=== PATIENT | female | born 1965 | race Caucasian/White ===

== ENCOUNTER 2023-04-30 19:19 | Emergency (ER) | payer OTHER, SELFPAY ==
[2023-04-30 19:28] VITALS: BP 117/68; PULSE 59; RESP 16; TEMP 36.8; O2SAT 100; BMI 22.2
--- NOTE | 2023-04-30 19:33 | DI.RAD.S_ITS ---
PROCEDURE: XR CHEST 1V INDICATIONS: chest pain TECHNIQUE: One view of the chest was acquired. COMPARISON: None. FINDINGS: Surgical changes and devices: None. Lungs and pleura: Lungs are clear. No pleural effusions or pneumothorax. Mediastinum: Mediastinal contours appear normal. Heart size is normal. Bones and chest wall: No suspicious bony lesions. Overlying soft tissues appear unremarkable. IMPRESSION: No acute pulmonary process. Dictated by: Shantal Saldivar M.D. on 04/30/2023 at 20:11 Approved by: Shantal Saldivar M.D. on 04/30/2023 at 20:11
--- NOTE | 2023-04-30 19:55 | ED_ITS ---
HPI - Chest Pain General Chief Complaint: Chest Pain Stated Complaint: Thyroid surgery t-3, Chest tightness Time Seen by Provider: 04/30/23 19:21 Source: patient Mode of arrival: Ambulatory History of Present Illness HPI narrative: 57-year-old female nonsmoker presents for evaluation of chest tightness persistently for the past 3-4 days. She denies obvious provocation or palliation. She denies associated symptoms such as dizziness, weakness or lightheadedness. She has had no fever or chills. She denies runny nose or sore throat. The pain is described as a pressure and essentially located without radiation. She states that she recently had a thyroid cyst drained and the symptoms start in the aftermath. She is had this procedure done multiple times but this 1 was a bit more complex per the patient's report and required more ?pokes? than she typically needed. She denies any abdominal pain. She denies extremity pain, swelling or redness. Related Data Allergies Allergy/AdvReac Type Severity Reaction Status Date / Time Sulfa (Sulfonamide AdvReac Hives Verified 04/30/23 19:26 Antibiotics) Review of Systems Review of Systems Narrative: GENERAL: Denies chills, fatigue, malaise, fever, sweats. HEENT: Denies sinus pain, ear pain, sore throat, difficulty swallowing, dizziness. RESPIRATORY: Denies dyspnea, cough, wheezing, hemoptysis, sputum. CARDIOVASCULAR: See HPI GASTROINTESTINAL: Denies nausea, vomiting, abdominal pain, diarrhea, constipation, melena. : Denies dysuria, frequency, incontinence, hematuria, urinary retention. MUSCULOSKELETAL: denies weakness, joint pain, or bony pain SKIN: Denies rash, skin lesions, or other NEUROLOGIC: Denies weakness, headache, numbness, change in speech, confusion, seizures, incoordination. PSYCHIATRIC: No concerning psychosocial issues. 12 point review of systems is negative except for those stated above Patient History Social History Smoking Status: Never smoker Smoking Status: Never smoker alcohol intake frequency: holidays/special occasions only Substance Use Type: does not use Exam Narrative Exam Narrative: GENERAL: [57] year old patient appears stated age. Well-developed patient, in mild distress. HEAD: Atraumatic. Normocephalic. EYES: Pupils equal round and reactive. Extraocular motions intact. No scleral icterus. No injection or drainage. ENT: Nose without bleeding, purulent drainage. Throat without erythema, tonsillar hypertrophy or exudate. Airway patent. NECK: Trachea midline. Non tender CARDIOVASCULAR: Regular rate and rhythm without murmurs, gallops, or rubs. RESPIRATORY: Clear to auscultation. Breath sounds equal bilaterally. No wheezes, rales, or rhonchi. GASTROINTESTINAL: Abdomen soft, non-tender, nondistended. EXTREMITIES: No edema or joint tenderness. BACK: Nontender without deformity or crepitance. No flank tenderness. NEURO: AOx3. SKIN: No rash or erythema of visible areas Initial Vital Signs Initial Vital Signs: Vital Signs Temperature 98.2 F 04/30/23 19:28 Pulse Rate 59 L 04/30/23 19:28 Respiratory Rate 16 04/30/23 19:28 Blood Pressure 117/68 04/30/23 19:28 Pulse Oximetry 100 04/30/23 19:28 Oxygen Delivery Method Room Air 04/30/23 19:28 Scores HEART Score Heart Score history: Slightly Suspicious Heart Score EKG: Normal Heart Score Age: 45-64 years old Heart Score risk factors: No known risk factors Heart Score troponin: < or = to normal limit Heart Score Total: 1 Course Orders Ordered: ED Orders 04/30/23 19:33 XR chest 1V Stat EKG-12 Lead Stat 04/30/23 20:00 Complete Blood Count AUTO DIFF Stat Comprehensive Metabolic Panel Stat Lipase Stat Magnesium Stat PTT Partial Thromboplastin Ronni Stat Prothrombin Time INR Stat Troponin & CK Cardiac Panel Stat 04/30/23 20:04 CT angio chest PE protocol Stat Discontinued Medications Aspirin (Aspirin 81 Mg Chew Tab) 324 mg PO NOW ONE Stop: 04/30/23 19:34 Last Admin: 04/30/23 20:00 Dose: 324 mg Documented By: RUDY Ketorolac Tromethamine (Ketorolac 30 Mg/Ml Vial) 15 mg IV NOW ONE Stop: 04/30/23 21:23 Last Admin: 04/30/23 21:39 Dose: 15 mg Documented By: RUDY Vital Signs Vital signs: Vital Signs - 8 hr 04/30/23 19:28 04/30/23 20:53 04/30/23 21:30 Temperature 98.2 F Pulse Rate 59 L 58 L 59 L Respiratory Rate 16 12 16 Blood Pressure 117/68 125/70 110/65 Pulse Oximetry 100 99 99 Oxygen Delivery Method Room Air Room Air MDM - Chest Pain Lab Data 04/30/23 20:00 04/30/23 20:00 Labs: Lab Results 04/30/23 04/30/23 04/30/23 Range/Units 20:00 20:00 20:00 WBC 4.9 (4.5-11.0) X10^3/uL RBC 3.99 L (4.0-5.2) X10^6/uL Hgb 12.8 (12.0-16.0) g/dL Hct 36.6 (36-46) % MCV 91.7 (80-100) fL MCH 32.0 (26-34) PG MCHC 34.9 (30-36) % RDW 13.7 (11.6-14.8) % Plt Count 178 (150-400) X10^3/uL Neut % (Auto) 53.8 (50-75) % Lymph % (Auto) 34.0 (25-40) % Kerr % (Auto) 7.1 (3-14) % Eos % (Auto) 4.3 H (2-4) % Baso % (Auto) 0.8 (0-2) % Neut # (Auto) 2700 (2040-5315) /uL Lymph # (Auto) 1700 (2651-5105) /uL Kerr # (Auto) 400 (0-900) /uL Eos # (Auto) 200 (0-450) /uL Baso # (Auto) 0 (0-100) /uL PT 11.8 (10.1-12.7) SECONDS INR 1.0 (0.9-1.3) APTT 33 (26-36) SECONDS Sodium 135 L (137-145) mmol/L Potassium 4.4 (3.4-5.1) mmol/L Chloride 104 (98-107) mmol/L Carbon Dioxide 27 (22-32) mmol/L BUN 16 (7-17) mg/dL Creatinine 0.69 (0.52-1.04) mg/dL Estimated GFR > 60 (>60) mL/min BUN/Creatinine Ratio 23.2 H (6-22) Glucose 89 (70-100) mg/dL Calcium 9.0 (8.4-10.2) mg/dL Magnesium 1.9 (1.6-2.3) mg/dL Total Bilirubin 0.7 (0.2-1.3) mg/dL AST 30 (14-36) IU/L ALT 32 (<35) IU/L Alkaline Phosphatase 46 (38-126) U/L Total Creatine Kinase 50 (30-135) U/L Troponin I < 0.012 (0.01-0.034) ng/mL Total Protein 7.2 (6.3-8.2) g/dL Albumin 4.2 (3.5-5.0) g/dL Globulin 3.0 (1.7-4.1) g/dL Albumin/Globulin Ratio 1.4 (1.0-2.8) Lipase 70 (23-300) U/L MDM Narrative Medical decision making narrative: [57] year old patient presents with chest pressure persistently since Wednesday, recent thyroid surgery Multiple etiologies for patient's symptoms considered including, but not limited to: [Pulmonary embolism versus perforation versus hematoma versus cardiac ischemia versus other] Prior Charts reviewed in our EMR Primary Historian: patient Labs reviewed and interpreted by myself: No leukocytosis or left shift. Electrolytes, kidney function, troponin within normal limits Imaging reviewed: CTA without evidence of pulmonary embolism, perforation, infectious process, bleeding or evidence of postsurgical sequela Patient's symptoms improved over duration of stay with above-stated therapies. Findings and discharge diagnosis discussed with patient/family followed by verbalization of understanding Return precautions discussed with patient/family whom verbalize understanding of diagnosis and plan Discharge Plan Departure Patient Disposition: Home Clinical Impression: Atypical chest pain Instructions: DI for Atypical Chest Pain Activity Restrictions/Additional Instructions: *You have been diagnosed with [atypical chest pain. As we discussed there is no evidence of heart attack, blood clot, perforation, bleeding, infectious process or other significant abnormal finding that requires a specific or immediate intervention. *What to do: *Please continue to take your regular medications as directed. *Please follow up with your primary care provider in 2-3 days, call for an appointment. Let them know you were seen in the Emergency Department and that we ask that you be seen in follow up. We will electronically transmit a record of today's note if your PCP is in our system *If you do not have a primary care provider please contact the [facility] Resource line at [phone]. They will ask some questions about your medical history and help get you set up with a doctor in the community. *Return to Emergency Department if you should have any new, worsening or concerning symptoms, such as [fever greater than 101 F, shaking chills, worsening pain, persistent vomiting or other bothersome symptoms] Referrals: Bianca Hsieh PA-C [Primary Care Provider] - Stand Alone Forms: Patient Portal/API
[2023-04-30] MEDS: ASPIRIN 81 MG CHEW TAB 324 MG PO (20:00)
--- NOTE | 2023-04-30 20:04 | DI.CT.S_ITS ---
PROCEDURE: CT ANGIO CHEST PE PROTOCOL INDICATIONS: chest pain, SOB, recent thyroid procedure TECHNIQUE: After the administration of intravenous contrast, 2 mm thick sections acquired from the pulmonary apices to the posterior costophrenic angles. 3-dimensional maximum intensity projection (MIP) coronal and sagittal reformats were then acquired through the thorax. For radiation dose reduction, the following was used: automated exposure control, adjustment of mA and/or kV according to patient size. COMPARISON: [facility], RG, US THYROID, 07/20/2019, 11:48. [facility], CR, XR CHEST 1V, 04/30/2023, 19:53. FINDINGS: Image quality: Excellent. Pulmonary arteries: Pulmonary arteries are normal in size, and demonstrate no intraluminal filling defects to suggest central pulmonary embolism. Lungs and pleura: Lungs are clear. No pleural effusions or pneumothorax. Central and peripheral airways are patent. Mediastinum: Heart size is normal, without pericardial effusion. No mediastinal or hilar adenopathy. Thoracic aorta is normal in caliber and enhancement. Esophagus is normal in caliber, without hiatal hernia. Bones and chest wall: No suspicious bony lesions. Ribs and thoracic spine appear intact throughout. Thyroid gland demonstrates low-attenuation right lobe focus, unchanged. No axillary or supraclavicular adenopathy. Abdomen: Visualized upper abdominal solid organs appear normal in the early arterial phase of enhancement. IMPRESSION: No pulmonary embolism. Lungs are clear. Dictated by: Shantal Saldivar M.D. on 04/30/2023 at 21:03 Approved by: Shantal Saldivar M.D. on 04/30/2023 at 21:05
[2023-04-30 20:12] LABS: Add Manual Diff / Slide Review NO; Basophils Absolute Auto 0 /uL (0-100); Basophils Percent Auto 0.8 % (0-2); Eosinophils Absolute Auto 200 /uL (0-450); Eosinophils Percent Auto 4.3 % (2-4); Hematocrit 36.6 % (36-46); Hemoglobin 12.8 g/dL (12.0-16.0); Lymphocytes Absolute Auto 1700 /uL (1100-4500); Mean Corpuscular HGB Conc 34.9 % (30-36); Mean Corpuscular Volume 91.7 fL (80-100); Monocytes Absolute Auto 400 /uL (0-900); Monocytes Percent Auto 7.1 % (3-14); Neutrophils Absolute Auto 2700 /uL (1500-7000); Neutrophils Percent Auto 53.8 % (50-75); Platelet Count 178 X10^3/uL (150-400); Red Blood Cell Count 3.99 X10^6/uL (4.0-5.2); Red Cell Distribution Width 13.7 % (11.6-14.8); White Blood Cell Count 4.9 X10^3/uL (4.5-11.0)
[2023-04-30 20:19] LABS: Prothrombin Time 11.8 SECONDS (10.1-12.7)
[2023-04-30 20:21] LABS: PTT Partial Thromboplastin Tim 33 SECONDS (26-36)
[2023-04-30 20:22] LABS: Alanine Aminotransferase 32 IU/L (<35); Albumin 4.2 g/dL (3.5-5.0); Albumin Globulin Ratio 1.4 (1.0-2.8); Alkaline Phosphatase 46 U/L (38-126); Aspartate Aminotransferase 30 IU/L (14-36); BUN Creatinine Ratio 23.2 (6-22); Bilirubin Total 0.7 mg/dL (0.2-1.3); Blood Urea Nitrogen 16 mg/dL (7-17); Carbon Dioxide 27 mmol/L (22-32); Chloride 104 mmol/L (98-107); Creatine Kinase 50 U/L (30-135); Estimated Glomerular Filt Rate > 60 mL/min (>60); Glucose 89 mg/dL (70-100); HEMOLYSIS < 15 (0-50); Lipase 70 U/L (23-300); Magnesium 1.9 mg/dL (1.6-2.3); Potassium 4.4 mmol/L (3.4-5.1); Sodium 135 mmol/L (137-145); Total Protein 7.2 g/dL (6.3-8.2)
[2023-04-30 20:34] LABS: Troponin I < 0.012 ng/mL (0.01-0.034)
[2023-04-30 20:53] VITALS: BP 125/70; PULSE 58; RESP 12; O2SAT 99
[2023-04-30 21:30] VITALS: BP 110/65; PULSE 59; RESP 16; O2SAT 99
[2023-04-30] MEDS: KETOROLAC 30 MG/ML VIAL 15 MG IV (21:39)
== END 2023-04-30 22:10 | disposition home or self-care (01) ==
PROVIDERS: Emergency Provider Emergency Medicine; Family Provider Physician Assistant Medical; PCP Physician Assistant Medical
DX: R07.89 Other chest pain (principal)
CPT/HCPCS: 36415; 71045; 71275; 80053; 82550; 83690; 83735; 84484; 85025; 85610; 85730; 93005; 93010; 96374; 99284; J1885; Q9967

== ENCOUNTER 2023-06-19 07:52 | Emergency (ER) | payer OTHER, SELFPAY ==
[2023-06-19 07:56] VITALS: BP 109/62; PULSE 74; RESP 18; TEMP 36.6; O2SAT 100; BMI 20.9
[2023-06-19] MEDS: FLUORESCEIN 1 MG STRIP EYE-BOTH (08:06)
[2023-06-19] MEDS: PROPARACAINE 0.5% OPHTH SOL 1 DROPS EYE-BOTH (08:06)
--- NOTE | 2023-06-19 08:24 | ED.SKABFB ---
HPI - Skin/Abscess/Foreign Bdy General Chief complaint: Skin/Abscess/Foreign Body Stated complaint: L/ scratch to face and eye Time Seen by Provider: 06/19/23 08:01 Source: patient Mode of arrival: Ambulatory Limitations: no limitations History of Present Illness HPI narrative: Patient is a healthy 57-year-old female who presents today with left eye laceration. She was attacked by her cat this morning. Something scared the cat she got scratched in the eye. She does not wear contacts or glasses. She is a lower lip laceration she reports that she has a cyst in her eye. She put erythromycin ointment on it already. No visual changes. Related Data Previous Rx's Medication Instructions Recorded bacitracin zinc 500 unit/gram 1 applic topical TID #14 grams 06/19/23 topical ointment erythromycin 5 mg/gram (0.5 %) eye 0.5 inch ophthalmic (eye) TID #3.5 06/19/23 ointment grams Allergies Allergy/AdvReac Type Severity Reaction Status Date / Time Sulfa (Sulfonamide AdvReac Hives Verified 04/30/23 19:26 Antibiotics) Review of Systems Review of Systems ROS Unobtainable: All systems reviewed & are unremarkable except as noted in HPI and below Patient History Social History Smoking Status: Never smoker Smoking Status: Never smoker alcohol intake frequency: holidays/special occasions only Substance Use Type: does not use Exam Initial Vital Signs Initial Vital Signs: Vital Signs Temperature 97.9 F 06/19/23 07:56 Pulse Rate 74 06/19/23 07:56 Respiratory Rate 18 06/19/23 07:56 Blood Pressure 109/62 06/19/23 07:56 Pulse Oximetry 100 06/19/23 07:56 Oxygen Delivery Method Room Air 06/19/23 07:56 GENERAL: Well-appearing, well-nourished and in no acute distress. EYE: Extraocular muscles intact. Left eye lacrimal duct in tact there is no full-thickness laceration 0.25 cm horizontal superficial laceration of the lower lid. No adipose exposed. Lower lid cyst is noted. Pressure right eye 18mmHg Pressure left eye 17mmHg CARDIOVASCULAR: peripheral pulses in tact, cap refill <2 sec RESPIRATORY: No respiratory distress, speaks in full sentences without difficulty EXTREMITIES: Normal range of motion, no clubbing or edema. Neurovascularly intact NEUROLOGICAL: Cranial nerves II through XII grossly intact. Normal gait and speech. SKIN: Superficial scratches along nose and cheek Course Orders Ordered: Discontinued Medications Fluorescein Sodium (Fluorescein 1 Mg Strip) 1 mg EYE-BOTH NOW ONE Stop: 06/19/23 08:03 Last Admin: 06/19/23 08:06 Dose: 1 mg Documented By: RB Proparacaine HCl (Proparacaine 0.5% Ophth Deisy) 1 drops EYE-BOTH NOW ONE Stop: 06/19/23 08:03 Last Admin: 06/19/23 08:06 Dose: 1 drop Documented By: RB Vital Signs Vital signs: Vital Signs - 8 hr 06/19/23 07:56 Temperature 97.9 F Pulse Rate 74 Respiratory Rate 18 Blood Pressure 109/62 Pulse Oximetry 100 Oxygen Delivery Method Room Air MDM - Skin/Abscess/Foreign Bdy MDM Narrative Medical decision making narrative: 57-year-old female with a small superficial laceration on the lower lid. Eye exam is overall reassuring no actual lobe laceration or lens laceration no lacrimal duct laceration. Discussion with Ophthalmology [facility] , recommends transferring for evaluation and probable suture. Patient called and spoke to her own on-call sofa inspector whom I have not have spoke to as well. Picture was sent to him he disagrees with need for suture. He reports that he will see patient in 2 days on Wednesday. Patient does not want to drive down to [place] for evaluation. Reports that this should heal on its own. Discharge Plan Departure Patient Disposition: Home Clinical Impression: Laceration of eyelid without involvement of lid margin Instructions: DI for Laceration Repair Activity Restrictions/Additional Instructions: Recommend going directly to [facility] for suture and repair. Check into their emergency department and you will be seen and evaluated. Arrangements with local ophthalmology have been made, follow-up with them on Wednesday. This needs to be sutured and repaired today. Continue erythromycin ointment Return to emergency department if you should have any redness swelling fever or any new or worsening symptoms Prescriptions: New erythromycin 5 mg/gram (0.5 %) ointment 0.5 inch ophthalmic (eye) TID Qty: 3.5 0RF bacitracin zinc 500 unit/gram ointment 1 applic topical TID Qty: 14 0RF Referrals: Bianca Hsieh PA-C [Primary Care Provider] - Stand Alone Forms: Patient Portal/API
== END 2023-06-19 11:50 | disposition home or self-care (01) ==
PROVIDERS: Emergency Provider Emergency Medicine; Family Provider Physician Assistant Medical; PCP Physician Assistant Medical
DX: S01.112A Laceration without foreign body of left eyelid and periocular area, initial encounter (principal); W55.03XA Scratched by cat, initial encounter
CPT/HCPCS: 99282; 99283

== ENCOUNTER → 2025-08-10 07:59 | Outpatient (CLI) | payer OTHER, SELFPAY ==
--- NOTE | 2025-08-10 08:01 | DI.US.S_ITS ---
PROCEDURE: US PELVIC COMPLETE INDICATIONS: Postmenopausal bleeding TECHNIQUE: Real-time scanning was performed of the pelvic organs, with image documentation. Additional endovaginal scanning was necessary due to incomplete visualization of the adnexal and endometrial structures by transabdominal scanning. COMPARISON: None. FINDINGS: Uterus: Uterus is anteverted and normal in size at 7.5 x 5.4 x 4.2 cm. The myometrium is homogeneous. The endometrium measures 5.6 mm combined thickness. There is a intramural fibroid in the midportion anteriorly measuring 1.3 cm. Ovaries: The right ovary measures 2.5 x 1.5 x 1.3 cm, with unremarkable appearance. The left ovary was not definitely seen. No adnexal mass. Other: No pathologic free abdominal or pelvic fluid. IMPRESSION: 1. Endometrium measures 5.6 mm. Small uterine fibroid. 2. Nonvisualization of the left ovary, no adnexal mass seen. We strive to produce accurate, complete, and clear reports of imaging services. To assist us in improving patient care, this report was composed using standard report templates and voice recognition software. Therefore, it may contain abnormal punctuation, insertions and/or omissions. Occasional wrong-word or sound-alike substitutions may occur. Though we review the report and make efforts to correct it, we do recommend that the report be read carefully in proper context to recognize any text inaccuracies. Dictated by: Justice Sampson M.D. on 08/12/2025 at 14:06 Approved by: Justice Sampson M.D. on 08/12/2025 at 14:08
== END ==
LOC: US 08:00
PROVIDERS: Family Provider Physician Assistant Medical; PCP Physician Assistant Medical; Referring Provider Physician Assistant Medical; Visit Provider Obstetrics & Gynecology
DX: D25.9 Leiomyoma of uterus, unspecified (principal); N95.0 Postmenopausal bleeding; N89.8 Other specified noninflammatory disorders of vagina; N95.1 Menopausal and female climacteric states; Z79.890 Hormone replacement therapy
CPT/HCPCS: 76830; 76856

== ENCOUNTER → 2025-08-17 08:01 | Outpatient (CLI) | payer OTHER, SELFPAY ==
--- NOTE | 2025-08-17 08:02 | DI.MRI.S_ITS ---
PROCEDURE: MR PELVIS WO/W CON INDICATIONS: PMB, endometrial mass on US TECHNIQUE: Coronal HASTE, sagittal breath-hold T2 FSE; axial T1 FSE with and without fat saturation through the pelvis. Optional long- and short-axis uterine nonbreath-hold T2 FSE through the uterus. Sagittal or axial dynamic VIBE during administration of contrast. Post-contrast axial or coronal VIBE/2-D FLASH with fat saturation from the iliac crests to the symphysis. Optional diffusion weighted imaging and ADC may be performed. COMPARISON: [facility], US, US PELVIC COMPLETE, 08/10/2025, 8:25. FINDINGS: Image quality: Diagnostic Lower abdomen: No bowel obstruction or lower abdomen. No drainable ascites. Bladder: Unremarkable Reproductive organs: defect. Cervix is unremarkable. The endometrium measures 6 millimeters in thickness. No discrete lesion is identified. No significant adnexal lesion. 1.2 centimeter anterior intramural fibroid. Rectum: Unremarkable. Distal colonic diverticula. Vessels and lymph nodes: No aneurysmal artery identified. There are no enlarged lymph nodes by size criteria Pelvic wall: Unremarkable Bones: No aggressive appearing osseous abnormality. IMPRESSION: Mildly thickened endometrium at 6 millimeters. Consider sampling in the setting of postmenopausal bleeding. There is no discrete enhancing mass identified on MRI. 1.2 centimeter anterior intramural fibroid. No significant adnexal lesions. Dictated by: Jim Ewing M.D. on 08/17/2025 at 10:02 Approved by: Jim Ewing M.D. on 08/17/2025 at 10:09
== END ==
PROVIDERS: Family Provider Physician Assistant Medical; PCP Physician Assistant Medical; Referring Provider Physician Assistant Medical; Visit Provider Obstetrics & Gynecology
DX: N95.0 Postmenopausal bleeding (principal); N94.89 Other specified conditions associated with female genital organs and menstrual cycle; R93.89 Abnormal findings on diagnostic imaging of other specified body structures; D25.1 Intramural leiomyoma of uterus
CPT/HCPCS: 72197; A9579

== ENCOUNTER 2025-10-10 08:00 | Emergency (ER) | payer OTHER, SELFPAY ==
--- NOTE | 2025-10-10 08:07 | DI.RAD.S_ITS ---
PROCEDURE: XR CHEST 1V INDICATIONS: Chest Pain TECHNIQUE: One view of the chest was acquired. COMPARISON: [facility], CR, XR CHEST 1V, 04/30/2023, 19:53. FINDINGS: Surgical changes and devices: None. Lungs and pleura: Lungs are clear. No pleural effusions or pneumothorax. Mediastinum: Mediastinal contours appear normal. Heart size is normal. Bones and chest wall: No suspicious bony lesions. Overlying soft tissues appear unremarkable. IMPRESSION: No acute cardiopulmonary abnormality is seen. Dictated by: Tha Thomas M.D. on 10/10/2025 at 9:25 Approved by: Tha Thomas M.D. on 10/10/2025 at 9:25
--- NOTE | 2025-10-10 08:07 | EKG_ITS ---
[address] [address] Test Date: 2025-10-10 Pat Name: Elizabeth Longoria Department: Room: Gender: Female Creative Assistant: GEOVANNY : 1965 Requested By: Order Number: [id number] Reading MD: Michelet Gardiner Measurements Intervals [place] Rate: 60 P: 75 NH: 152 QRS: 82 QRSD: 82 T: 50 QT: 406 QTc: 406 Interpretive Statements Normal sinus rhythm Electronically Signed On 10-10-2025 14:13:45 PST by Michelet Gardiner
--- NOTE | 2025-10-10 08:10 | ED_ITS ---
HPI - Chest Pain General Chief Complaint: Chest Pain Stated Complaint: Chest pressure , Seen at [facility] 1 day Time Seen by Provider: 10/10/25 08:10 History of Present Illness HPI narrative: 60-year-old woman on hormone replacement therapy presents with 2 days of midsternal chest pain, occasional palpitations. She did recently fly back from [place]. She was seen at [facility] yesterday for similar complaints with complete workup done showing normal x-ray, EKG was unremarkable, troponins and D-dimer were negative and she was discharged home with a diagnosis of atypical chest pain. She did try some ibuprofen did not find it effective and was told to return to the ER if symptoms worsening. Today they were worsening she describes the pain as actual pressure and tightness rather than simply twinges and she previously. She is not having cough, she is not short of breath, there was no exertional component any of this none of this is associated with diaphoresis or dyspnea Related Data Home Medications ?Medication ?Instructions ?Recorded ?Confirmed eszopiclone 1 mg tablet (Lunesta) 1 mg PO BEDTIME 04/0110/03/25 semaglutide 0.25 mg/0.05 mL mg SUBCUT .1xw 04/11/25 subcutaneous syringe valacyclovir 500 mg tablet 500 mg PO TID PRN 04/11/25 10/03/25 (Valtrex) cyclosporine 0.05 % eye drops in a drp EYE-BOTH Dry Ey e 06/06/25 10/03/25 dropperette (Restasis) fluorouracil 5 % topical cream applic topical Skin Can cers 06/06/25 10/03/25 (Efudex) Previous Rx's ?Medication ?Instructions ?Recorded estradiol 10 mcg vaginal tablet 10 mcg vaginal 3XW #12 tabs 04/11/25 (Vagifem) progesterone micronized 100 mg 100 mg PO .qhs #30 caps 04/11/25 capsule CMP Testosterone 2mg DHEA 25mg See Rx Instructions .Ro rose marie 08/13/25 drops .COMPLEX #30 grams estradiol 0.0375 mg/24 hr 1 patch transdermal 2XW #8 e a 08/15/25 semiweekly transdermal patch (Vivelle-Dot) sodium,potassium,mag sulfates 17.5 See Rx Instructions PO .COMPLEX 09/21/25 gram-3.13 gram-1.6 gram oral soln #354 mL (Suprep Bowel Prep Kit) Allergies Allergy/AdvReac Type Severity Reaction Status Date / Time Sulfa (Sulfonamide AdvReac Hives Verified 10/03/25 08:56 Antibiotics) adhessive Allergy Uncoded 10/03/25 08:56 vespide AdvReac Severe Blister Uncoded 10/03/25 08:56 Review of Systems Review of Systems Narrative: Pertinent positive and negative findings as per HPI Patient History alcohol intake frequency: holidays/special occasions only Exam Initial Vital Signs Initial Vital Signs: Vital Signs Pulse Rate 69 10/10/25 10:56 Blood Pressure 114/69 10/10/25 10:56 Pulse Oximetry 100 10/10/25 10:56 Oxygen Delivery Method Room Air 10/10/25 10:56 General: Healthy appearing, in no acute distress. Able to give a complete and coherent history. Well-nourished well-developed HEENT: Moist mucous membranes, normal sclera with reactive pupils, Respiratory: Lungs are clear to auscultation, no wheezing no rales no rhonchi. Full and symmetrical air movement. Chest: Reproducible chest pain with palpation along the right-sided lower sternal border. No bruising or contusion to that area Cardiac: Regular rate and rhythm no murmurs no bruits Abdomen: Soft, nontender, no rebound or guarding, no flank pain Skin: Warm and dry, no rashes Neurologic: Grossly neurologically intact with no obvious asymmetries or abnormalities Extremities: No trauma, well perfused Psych: Cooperative, appropriate insight and affect Course Orders Ordered: ED Orders 10/10/25 08:07 XR chest 1V Stat EKG-12 Lead Stat 10/10/25 08:20 Complete Blood Count AUTO DIFF Stat Comprehensive Metabolic Panel Stat D Dimer Stat Lipase Stat Magnesium Stat NT-proBNP (BNP-Adult 18+) Stat PTT Partial Thromboplastin Ronni Stat Prothrombin Time INR Stat Troponin & CK Cardiac Panel Stat 10/10/25 08:28 US abdomen limited Stat 10/10/25 11:50 Troponin I Stat Discontinued Medications Ketorolac Tromethamine (Ketorolac 30 Mg/Ml Vial) 15 mg IV NOW ONE Stop: 10/10/25 08:29 Last Admin: 10/10/25 08:53 Dose: Not Given Documented By: RB Ketorolac Tromethamine (Ketorolac 30 Mg/Ml Vial) 30 mg IM NOW ONE Stop: 10/10/25 08:46 Last Admin: 10/10/25 08:57 Dose: 30 mg Documented By: VANESSA Vital Signs Vital signs: Vital Signs - 8 hr 10/10/25 10:56 10/10/25 13:08 Temperature 98.1 F Pulse Rate 69 77 Respiratory Rate 18 Blood Pressure 114/69 106/69 Pulse Oximetry 100 99 Oxygen Delivery Method Room Air Room Air MDM - Chest Pain Lab Data 10/10/25 08:20 10/10/25 08:20 Labs: Lab Results 10/10/25 10/10/25 Range/Units 08:20 11:50 WBC 3.4 L (4.5-11.0) X10^3/uL RBC 4.26 (4.0-5.2) X10^6/uL Hgb 13.4 (12.0-16.0) g/dL Hct 38.4 (36-46) % MCV 90.2 (80-100) fL MCH 31.4 (26-34) PG MCHC 34.9 (30-36) % RDW 13.2 (11.6-14.8) % Plt Count 185 (150-400) X10^3/uL Neut % (Auto) 49.6 L (50-75) % Lymph % (Auto) 37.8 (25-40) % [place] % (Auto) 7.4 (3-14) % Eos % (Auto) 4.3 H (2-4) % Baso % (Auto) 0.9 (0-2) % Neut # (Auto) 1700 (4617-3430) /uL Lymph # (Auto) 1300 (9548-0947) /uL [place] # (Auto) 300 (0-900) /uL Eos # (Auto) 100 (0-450) /uL Baso # (Auto) 0 (0-100) /uL PT 10.8 (9.4-12.5) SECONDS INR 1.0 (0.9-1.3) APTT 24 L (25.1-36.5) SECONDS D-Dimer < 215 (<500) ng/ml Sodium 134 L (137-145) mmol/L Potassium 4.8 (3.4-5.1) mmol/L Chloride 103 (98-107) mmol/L Carbon Dioxide 25 (22-32) mmol/L BUN 12 (7-17) mg/dL Creatinine 0.70 (0.52-1.04) mg/dL Estimated GFR > 60 (>60) mL/min BUN/Creatinine Ratio 17.1 (6-22) Glucose 90 (70-99) mg/dL Calcium 8.7 (8.4-10.2) mg/dL Magnesium 1.9 (1.6-2.3) mg/dL Total Bilirubin 1.4 H (0.2-1.3) mg/dL AST 47 H (14-36) IU/L ALT 22 (<35) IU/L Alkaline Phosphatase 35 L (38-126) U/L Total Creatine Kinase 69 (30-135) U/L Troponin I 0.028 < 0.012 (0.01-0.034) ng/mL NT-Pro-B Natriuret Pep 46 (<125) pg/mL Total Protein 7.7 (6.3-8.2) g/dL Albumin 4.6 (3.5-5.0) g/dL Globulin 3.1 (1.7-4.1) g/dL Albumin/Globulin Ratio 1.5 (1.0-2.8) Lipase 89 (23-300) U/L MDM Narrative Medical decision making narrative: 60-year-old woman who presents with right-sided chest pain worse with palpations present for greater than 48 hours and increasing which prompted her 2nd ER visit today Workup done at [facility] ER yesterday for same complaint is reviewed. Labs show no significant abnormalities including no evidence of acute coronary syndrome, infection, anemia, electrolyte abnormality D-dimer was within normal limits today and yesterday. Likelihood of a pulmonary embolism is minimal With the right-sided pain an ultrasound was ordered of her upper abdomen to see if gallstones might be contributing, she does not have any evidence of gallbladder disease Reviewed all of her findings with her. Discussed costochondritis and musculoskeletal chest pain. She was given IM Toradol, 8 mg oral dexamethasone we discussed ibuprofen and Tylenol for pain control and anticipated course of recovery along with reassurance regarding the absence of life-threatening diagnoses today. Questions are answered and she is safely discharged HEART score = 1 Discharge Plan Departure Patient Disposition: Home Clinical Impression: Acute costochondritis Instructions: DI for Costochondritis Activity Restrictions/Additional Instructions: Thank you for coming in today You now have had to very thorough workups looking for cardiac reasons for your chest pain. Both workups did not show evidence of heart disease, heart attack or heart attack like symptoms, blood clots in your lungs, significant infection, collapsed lungs or other life threatening abnormalities. With the right-sided pain that you are noticing I did do an ultrasound today to make sure that this was not gallbladder disease and you do not have gallstones, this is not gallbladder disease With pain reproducible as I am pressing I suspect that this is costochondritis which is inflammation in the area where the ribs attached to the breastbone. Typically costochondritis is self-limited meaning it will resolve. Anti inflammatories can be helpful. You can try ice or heat to that area as well. I have given you a dose of dexamethasone, steroid in the emergency department. Using 400 mg of ibuprofen (2 [id number] pills) and 1 Tylenol every 6 hours can be very helpful in controlling pain. If you find that you are having new symptoms or worsening findings please feel free to return to the ER Prescriptions: No Action CMP Testosterone 2mg DHEA 25mg drops See Rx Instructions .ROUTE .COMPLEX Qty: 30 0RF Rx Instructions: daily sublingual drops; estradiol [Vivelle-Dot] 0.0375 mg/24 hr patch semiweekly 1 patch transdermal 2XW Qty: 8 12RF Rx Instructions: apply 1 patch for 3 days alternating with 1 patch for 4 days each week sodium,potassium,mag sulfates [Suprep Bowel Prep Kit] 17.5-3.13-1.6 gram recon soln See Rx Instructions PO .COMPLEX Qty: 354 0RF Rx Instructions: Take medication as prescribed by provider valacyclovir [Valtrex] 500 mg tablet 500 mg PO TID PRN semaglutide 0.25 mg/0.05 mL syringe SUBCUT .1xw eszopiclone [Lunesta] 1 mg tablet 1 mg PO BEDTIME progesterone micronized 100 mg capsule 100 mg PO .qhs Qty: 30 12RF estradiol [Vagifem] 10 mcg tablet 10 mcg vaginal 3XW Qty: 12 12RF fluorouracil [Efudex] 5 % cream topical cyclosporine [Restasis] 0.05 % dropperette EYE-BOTH Referrals: Bianca Hsieh PA-C [Primary Care Provider, Family Practice] Stand Alone Forms: Patient Portal/API
--- NOTE | 2025-10-10 08:28 | DI.US.S_ITS ---
PROCEDURE: US ABDOMEN LIMITED INDICATIONS: RUQ pain TECHNIQUE: Real-time scanning was performed of the abdominal and retroperitoneal organs, with image documentation. COMPARISON: None. FINDINGS: Liver: Liver is normal in size and homogeneous in echotexture. Gallbladder: No gallstones. No wall thickening. No pericholecystic edema. Negative sonographic Toledo's sign. Biliary ducts: Intrahepatic bile ducts are non-dilated. Extrahepatic bile duct caliber measures 4.3 mm. Normal is 6-7 mm or less in diameter, or 10 mm or less post-cholecystectomy. Pancreas: Visualized portions of the pancreas are sonographically normal. Miscellaneous: No free abdominal fluid. IMPRESSION: Unremarkable right upper quadrant ultrasound. No gallstone disease. Dictated by: Tha Thomas M.D. on 10/10/2025 at 9:27 Approved by: Tha Thomas M.D. on 10/10/2025 at 9:29
[2025-10-10 08:39] LABS: Add Manual Diff / Slide Review NO; Hematocrit 38.4 % (36-46); Hemoglobin 13.4 g/dL (12.0-16.0); Lymphocytes Absolute Auto 1300 /uL (1100-4500); Mean Corpuscular HGB Conc 34.9 % (30-36); Mean Corpuscular Hemoglobin 31.4 PG (26-34); Mean Corpuscular Volume 90.2 fL (80-100); Platelet Count 185 X10^3/uL (150-400)
[2025-10-10 08:46] LABS: INR 1.0 (0.9-1.3); Prothrombin Time 10.8 SECONDS (9.4-12.5)
[2025-10-10 08:49] LABS: PTT Partial Thromboplastin Tim 24 SECONDS (25.1-36.5)
[2025-10-10 08:50] LABS: Alanine Aminotransferase 22 IU/L (<35); Albumin 4.6 g/dL (3.5-5.0); Albumin Globulin Ratio 1.5 (1.0-2.8); Alkaline Phosphatase 35 U/L (38-126); Blood Urea Nitrogen 12 mg/dL (7-17); Calcium 8.7 mg/dL (8.4-10.2); Carbon Dioxide 25 mmol/L (22-32); Chloride 103 mmol/L (98-107); Creatine Kinase 69 U/L (30-135); Estimated Glomerular Filt Rate > 60 mL/min (>60); Globulin 3.1 g/dL (1.7-4.1); Glucose 90 mg/dL (70-99); Lipase 89 U/L (23-300); Magnesium 1.9 mg/dL (1.6-2.3); Potassium 4.8 mmol/L (3.4-5.1); Sodium 134 mmol/L (137-145); Total Protein 7.7 g/dL (6.3-8.2)
[2025-10-10 08:52] LABS: HEMOLYSIS 188 (0-50)
[2025-10-10] MEDS: KETOROLAC 30 MG/ML VIAL IM (08:57)
[2025-10-10 09:01] LABS: NT-proBNP (BNP-Adult 18+) 46 pg/mL (<125); Troponin I 0.028 ng/mL (0.01-0.034)
[2025-10-10 10:56] VITALS: BP 114/69; PULSE 69; O2SAT 100
[2025-10-10 12:20] LABS: Troponin I < 0.012 ng/mL (0.01-0.034)
[2025-10-10 13:08] VITALS: BP 106/69; PULSE 77; RESP 18; TEMP 36.7; O2SAT 99
[2025-10-10 15:23] VITALS: BP 109/69; PULSE 70; RESP 16; O2SAT 100
--- NOTE | 2025-10-10 15:24 | INF.NOTE ---
lab draw was obtained at triage by SHAKILA Bustillo. Unable to obtain IV access.
== END 2025-10-10 15:42 | disposition home or self-care (01) ==
PROVIDERS: Emergency Provider Emergency Medicine; PCP Physician Assistant Medical
DX: M94.0 Chondrocostal junction syndrome [Tietze] (principal); Z79.890 Hormone replacement therapy
CPT/HCPCS: 36415; 71045; 76705; 80053; 82550; 83690; 83735; 83880; 84484; 85025; 85379; 85610; 85730; 93005; 96372; 99283; 99284; J1885

== ENCOUNTER 2025-10-22 07:14 | Day surgery (SDC) | payer OTHER, SELFPAY ==
[2025-10-17 10:36] VITALS: BMI 19.5
[2025-10-22 07:29] VITALS: BP 109/73; PULSE 60; RESP 16; TEMP 36.8; O2SAT 100
--- NOTE | 2025-10-22 08:13 | PM.HP.IH.1 ---
History of Present Illness History of Present Illness Date Patient Seen: 10/22/25 Time Patient Seen: 08:13 Chief complaint: Colonoscopy Narrative: Elizabeth is a 60-year-old woman here for colonoscopy. Her last colonoscopy was about 10 years ago. She does not believe she has had polyps. No family history of colon cancer. She has experienced left lower quadrant made. She has also had a lot of stressors in life since [facility] Medical History (Updated 10/22/25 @ 08:14 by Phil Frausto MD) DDD (degenerative disc disease) Osteopenia ADD (attention deficit disorder) Seasonal affective disorder Thyroid cyst Interstitial cystitis Heart palpitations Atypical chest pain Social History Smoking Status: Never smoker Meds Home Medications and Allergies Home Medications ?Medication ?Instructions ?Recorded ?Confirmed ?Type estradiol 10 mcg vaginal tablet 10 mcg vaginal 3XW #12 tabs 04/11/25 10/22/25 Rx (Vagifem) eszopiclone 1 mg tablet (Lunesta) 1 mg PO BEDTIME 04/11/25 10/22/25 History progesterone micronized 100 mg 100 mg PO .qhs #30 caps 04/11/25 10/22/25 Rx capsule semaglutide 0.25 mg/0.05 mL mg SUBCUT .1xw 04/11/25 10/03/25 History subcutaneous syringe valacyclovir 500 mg tablet 500 mg PO TID 04/11/25 10/22/25 History (Valtrex) cyclosporine 0.05 % eye drops in a drp EYE-BOTH Dry Eye 06/06/25 10/03/25 History dropperette (Restasis) fluorouracil 5 % topical cream applic topical Skin Cancers 06/06/25 10/03/25 History (Efudex) CMP Testosterone 2mg DHEA 25mg See Rx Instructions .Route 08/13/25 10/22/25 Rx drops .COMPLEX #30 grams estradiol 0.0375 mg/24 hr 1 patch transdermal 2XW #8 ea 08/15/25 10/22/25 Rx semiweekly transdermal patch (Vivelle-Dot) sodium,potassium,mag sulfates 17.5 See Rx Instructions PO .COMPLEX 09/21/25 10/22/25 Rx gram-3.13 gram-1.6 gram oral soln #354 mL (Suprep Bowel Prep Kit) Allergies Allergy/AdvReac Type Severity Reaction Status Date / Time Sulfa (Sulfonamide AdvReac Hives Verified 10/22/25 07:17 Antibiotics) adhessive Allergy Uncoded 10/22/25 07:17 vespide AdvReac Severe Blister Uncoded 10/22/25 07:17 Exam Vital Signs (past 8 hours): - 10/22/25 07:29 Temperature 98.2 F Pulse Rate 60 Respiratory Rate 16 Blood Pressure 109/73 Pulse Oximetry 100 Oxygen Delivery Method Room Air Oxygen Delivery Method Room Air Const General: healthy appearing Assessment & Plan Assessment and plan (1) Colon cancer screening: Status: Acute Plan Colonoscopy Time-Based Coding :: [TOTAL MINUTES] spent with patient and on the chart (including review of chart, obtaining history, exam, reviewing outside data, placing orders, documenting exam and treatment plan, and counseling patient) on [DATE]. PROFEE Special Event Assistant Document charge(s): No
--- NOTE | 2025-10-22 08:46 | PM.OP.COLON ---
Operative Date/Time/Diagnoses Date of procedure: 10/22/25 Time of procedure: 08:46 Pre-op diagnosis: Colon cancer screening Post-op diagnosis: same Procedure & Clinicians Study performed: Colonoscopy Same procedure(s) as scheduled: Yes Surgeon: Phil Frausto Anesthesia Type: MAC +/- Procedure Notes Procedure in detail: Surgeon: Phil Frausto MD Anesthesia: Nannette Villanueva CRNA Procedure: The patient was brought to the endoscopy suite, placed in left lateral decubitus position. The patient was connected to monitoring devices. A time-out was performed. Sedation was administered. Once the patient was adequately sedated, a digital rectal exam was performed and was normal. The scope was then inserted and advanced to the cecum where the appendiceal orifice was identified and photographed. The scope was then slowly withdrawn over greater than 6 minutes. The mucosa was thoroughly inspected. No polyps or other abnormalities were found. The scope was retroflexed in the rectum. The scope was straightened and removed. The patient was awakened and brought to recovery. Scope withdrawal time: 8 minutes Sedation time: 21 minutes Findings: Normal colon Estimated Blood Loss: 0 Complications: none Post-procedure Recommendations: Colonoscopy in 10 years Disposition: PACU
[2025-10-22 08:48] VITALS: BP 103/57; PULSE 81; RESP 18; TEMP 36.2; O2SAT 100
[2025-10-22 08:51] VITALS: BP 101/56; PULSE 81; RESP 16; O2SAT 100
[2025-10-22 08:54] VITALS: BP 101/56; PULSE 75; RESP 18; TEMP 36.2; O2SAT 98
== END 2025-10-22 09:10 | disposition home or self-care (01) ==
PROVIDERS: Surgery; PCP Physician Assistant Medical; Referring Provider Physician Assistant Medical; Visit Provider Internal Medicine Gastroenterology
PROC: 0DJD8ZZ Inspection of Lower Intestinal Tract, Via Natural or Artificial Opening Endoscopic (ICD-10-PCS; CPT 45378; principal; 2025-10-22 08:15)
DX: Z12.11 Encounter for screening for malignant neoplasm of colon (principal)
CPT/HCPCS: 45378; J2704